=== PATIENT | female | born 2005 | race Two or more races ===

== ENCOUNTER 2023-03-19 19:14 | Emergency (ER) | payer OTHER ==
[~2023-03-19] VITALS: Ht 160 cm; Wt 56.2 kg
[2023-03-19] MEDS ORDERED: PRENATAL + DHA1 EAC1 (20:29)
[2023-03-19] MEDS ORDERED: CEFADROXIL500 MG PO (22:28)
== END 2023-03-19 22:56 | disposition home or self-care (01) ==
LOC: ER 19:14 → EMR PED 19:15
PROVIDERS: Emergency Medicine
DX: O26.891 Other specified pregnancy related conditions, first trimester (principal); Z3A.10 10 weeks gestation of pregnancy; Z20.822 Contact with and (suspected) exposure to COVID-19; O98.511 Other viral diseases complicating pregnancy, first trimester

== ENCOUNTER → 2023-05-04 | Emergency (ER) | payer OTHER ==
[~2023-05-04] VITALS: Ht 160 cm; Wt 59.0 kg
[~2023-05-04] MED LIST: CEFADROXIL500 MG PO; PRENATAL + DHA1 EAC1
[2023-05-04 18:32] LABS: HEMATOCRIT 34.5 % (36.0-45.00); HEMOGLOBIN 11.6 g/dL (12.0-15.00); MEAN CELL VOLUME 83.1 fL (80.00-100.00); MEAN CORPUSCULAR HEMOGLOBIN 28.1 pg (27.00-32.0); MEAN CORPUSCULAR HGB CONC 33.8 g/dl (32.0-36.0); PLATELET COUNT 206 K/uL (150-450); RED BLOOD COUNT 4.15 M/uL (4.00-6.00); RED CELL DISTRIBUTION WIDTH 14.6 % (11.5-14.5)
[2023-05-04 19:25] LABS: CALCIUM 8.6 mg/dL (8.5-10.1); CREATININE SERUM 0.6 mg/dL (0.55-1.02); GFR 128.78; POTASSIUM 3.4 mEq/L (3.5-5.1)
[2023-05-04 19:54] LABS: URINE APPEARANCE Cloudy; URINE BILIRRUBIN Negative (NEGATIVE); URINE BLOOD Negative; URINE COLOR Yellow; URINE GLUCOSE Negative (NEGATIVE); URINE LEUKOCYTE Trace; URINE NITRATE Negative; URINE PROTEIN Trace (NEGATIVE)
[2023-05-04 19:58] LABS: URINE BACTERIA 3419.4 uL (0.0-1933); URINE EPITHELIAL CELLS 116.2 uL (0.0-38.8)
[2023-05-04 20:42] LABS: URINE RBC 1.1 uL (0.0-20.8)
[2023-05-04 20:43] LABS: URINE YEAST NEGATIVE /hpf
== END | disposition home or self-care (01) ==
LOC: ER 17:10
PROVIDERS: Emergency Medicine
DX: N39.0 Urinary tract infection, site not specified (principal); K52.89 Other specified noninfective gastroenteritis and colitis

== ENCOUNTER 2023-06-03 12:35 | Outpatient (CLI) | payer OTHER | END 2023-06-03 14:19 | disposition home or self-care (01) | LOC: NST 12:35 | PROVIDERS: ATTEND Obstetrics & Gynecology | DX: Z34.82 Encounter for supervision of other normal pregnancy, second trimester (principal) ==

== ENCOUNTER 2023-06-19 09:34 | Outpatient (CLI) | payer OTHER ==
[2023-06-19 11:47] LABS: HEMATOCRIT 32.1 % (36.0-45.00); HEMOGLOBIN 11.1 g/dL (12.0-15.00); MEAN CELL VOLUME 83.8 fL (80.00-100.00); MEAN CORPUSCULAR HEMOGLOBIN 28.9 pg (27.00-32.0); MEAN CORPUSCULAR HGB CONC 34.5 g/dl (32.0-36.0); PLATELET COUNT 197 K/uL (150-450); RED BLOOD COUNT 3.83 M/uL (4.00-6.00); RED CELL DISTRIBUTION WIDTH 13.5 % (11.5-14.5)
[2023-06-19 11:49] LABS: INR 0.97; PARTIAL THROMBOPLASTIN TIME 27.6 SECONDS (22.0-34.0); PROTHROMBIN TIME 10.2 SECONDS (9.0-11.5)
== END 2023-06-19 17:39 | disposition home or self-care (01) ==
LOC: OBS/DEL 09:34
PROVIDERS: ATTEND Obstetrics & Gynecology Gynecology
DX: O26.892 Other specified pregnancy related conditions, second trimester (principal); R10.31 Right lower quadrant pain; Z3A.24 24 weeks gestation of pregnancy

== ENCOUNTER 2023-08-10 16:19 | Emergency (ER) | payer OTHER ==
[~2023-08-10] VITALS: Ht 160 cm; Wt 64.9 kg
[2023-08-10 17:55] LABS: HEMATOCRIT 27.9 % (36.0-45.00); HEMOGLOBIN 9.5 g/dL (12.0-15.00); MEAN CELL VOLUME 80.7 fL (80.00-100.00); MEAN CORPUSCULAR HEMOGLOBIN 27.4 pg (27.00-32.0); PLATELET COUNT 208 K/uL (150-450); RED BLOOD COUNT 3.46 M/uL (4.00-6.00); RED CELL DISTRIBUTION WIDTH 13.1 % (11.5-14.5)
[2023-08-10 18:53] LABS: PH,URINE 6.5 (5.0-8.0); URINE APPEARANCE Cloudy; URINE BILIRRUBIN Negative (NEGATIVE); URINE BLOOD Negative; URINE COLOR Yellow; URINE LEUKOCYTE Large; URINE NITRATE Negative; URINE PROTEIN Trace (NEGATIVE)
[2023-08-10 18:57] LABS: URINE BACTERIA 1516.8 uL (0.0-1933); URINE RBC 4.5 uL (0.0-20.8); URINE WBC 168.8 uL (0.0-23.2)
[2023-08-10 19:19] LABS: URINE GLUCOSE 100 MG/DL (NEGATIVE)
[2023-08-10] MEDS ORDERED: ZOFRAN8 MG PO (19:47)
[2023-08-10] MEDS ORDERED: PEPCID AC20 MG PO (19:47)
== END 2023-08-10 20:04 | disposition home or self-care (01) ==
LOC: ER 16:21
PROVIDERS: General Practice
DX: K52.89 Other specified noninfective gastroenteritis and colitis (principal); R11.10 Vomiting, unspecified; R10.9 Unspecified abdominal pain; N39.0 Urinary tract infection, site not specified; Z20.822 Contact with and (suspected) exposure to COVID-19

== ENCOUNTER → 2023-09-20 | Outpatient (CLI) | payer OTHER ==
[~2023-09-20] MED LIST changes: +PEPCID AC20 MG PO; +ZOFRAN8 MG PO
== END | disposition home or self-care (01) ==
LOC: NST 12:09
PROVIDERS: ATTEND Obstetrics & Gynecology
DX: Z34.83 Encounter for supervision of other normal pregnancy, third trimester (principal); Z3A.38 38 weeks gestation of pregnancy

== ENCOUNTER 2023-09-23 13:15 | Inpatient (IN) | payer OTHER ==
[~2023-09-23] VITALS: Ht 162.6 cm; Wt 68.5 kg
[2023-09-27] MEDS ORDERED: AMPICILLIN SODIUM 2,000 MG VIAL ONE (01:16)
[2023-09-27] MEDS ORDERED: RINGERS SOLUTION,LACTATED 1,000 ML IV SCH (01:30)
[2023-09-27] MEDS ORDERED: AMPICILLIN SODIUM 2,000 MG VIAL IV ONE (01:30)
[2023-09-27 01:53] LABS: HEMATOCRIT 28.9 % (36.0-45.00); HEMOGLOBIN 9.7 g/dL (12.0-15.00); MEAN CELL VOLUME 73.2 fL (80.00-100.00); MEAN CORPUSCULAR HEMOGLOBIN 24.5 pg (27.00-32.0); MEAN CORPUSCULAR HGB CONC 33.4 g/dl (32.0-36.0); PLATELET COUNT 245 K/uL (150-450); RED BLOOD COUNT 3.95 M/uL (4.00-6.00); RED CELL DISTRIBUTION WIDTH 15.9 % (11.5-14.5)
[2023-09-27 02:04] LABS: INR 0.95; PARTIAL THROMBOPLASTIN TIME 27.9 SECONDS (22.0-34.0)
[2023-09-27 02:07] LABS: ALBUMIN 3.1 gm/dL (3.4-5.0); BILIRUBIN TOTAL 0.38 mg/dL (0.3-1.2); CALCIUM 9.1 mg/dL (8.5-10.1); CREATININE SERUM 0.59 mg/dL (0.55-1.02); GFR 129.95; GLOBULINA 3.6 G/DL (2.4-3.5); POTASSIUM 3.84 mEq/L (3.5-5.1); TOTAL PROTEIN 6.7 gm/dL (6.4-8.2)
[2023-09-27] MEDS ORDERED: AMPICILLIN SODIUM 1,000 MG VIAL IV SCH (05:00)
[2023-09-27] MEDS ORDERED: MORPHINE SULFATE 4 MG/ML VIAL IV STA ×2 (06:42→08:53)
[2023-09-27] MEDS ORDERED: LIDOCAINE HCL 1% 200MG/20ML VIAL IJ ONE (07:01)
[2023-09-27] MEDS ORDERED: CHLORHEXIDINE GLUCONATE 120 ML BOTTLE TOP ONE (07:01)
[2023-09-27] MEDS ORDERED: OXYTOCIN 20 UNITS/1000ML RL PIGGYBAG IV ONE (07:02)
[2023-09-27] MEDS ORDERED: ERYTHROMYCIN BASE 1 GM TUBE OP ONE ×2 (07:02→14:45)
[2023-09-27] MEDS ORDERED: CEFAZOLIN SODIUM 1,000 MG VIAL IV STA (12:49)
[2023-09-27] MEDS ORDERED: CITRIC ACID/SODIUM CITRATE 30 ML BLIST.PACK PO ONE ×2 (13:00→13:21)
[2023-09-27] MEDS ORDERED: OXYTOCIN 10 UNITS/ML VIAL ONE ×2 (13:14→19:30)
[2023-09-27] MEDS ORDERED: ERYTHROMYCIN BASE 3.5 GM OINT...G. OP ONE (13:15)
[2023-09-27] MEDS ORDERED: CEFAZOLIN SODIUM 1,000 MG VIAL ONE (13:21)
[2023-09-27] MEDS ORDERED: MEPERIDINE HCL/PF 50 MG/ML VIAL IM PRN (14:45)
[2023-09-27] MEDS ORDERED: OXYTOCIN 1,000 ML IV SCH (14:45)
[2023-09-27] MEDS ORDERED: IBUprofen 400 MG TABLET PO PRN (14:45)
[2023-09-27] MEDS ORDERED: OXYTOCIN 10 UNITS/ML VIAL IV ONE (15:00)
[2023-09-27] MEDS ORDERED: KETOROLAC TROMETHAMINE 30 MG VIAL ONE (15:44)
[2023-09-27] MEDS ORDERED: AMPICILLIN SODIUM 1,000 MG VIAL ONE (19:05)
[2023-09-28] MEDS ORDERED: OxyCODONE HCL/APAP UD (PERCOCET) PO PRN ×2 (01:30→14:30)
[2023-09-28] MEDS ORDERED: IBUprofen 800 MG TABLET PO PRN (10:45)
[2023-09-28 12:31] LABS: HEMATOCRIT 24.5 % (36.0-45.00); MEAN CELL VOLUME 74.3 fL (80.00-100.00); MEAN CORPUSCULAR HGB CONC 33.4 g/dl (32.0-36.0); PLATELET COUNT 206 K/uL (150-450); RED BLOOD COUNT 3.29 M/uL (4.00-6.00)
[2023-09-28 12:32] LABS: HEMOGLOBIN 8.2 g/dL (12.0-15.00); MEAN CORPUSCULAR HEMOGLOBIN 24.9 pg (27.00-32.0)
[2023-09-29] MEDS ORDERED: IRON FUM,PS/FOLIC ACID/VITC/B3 1 CAP CAPSULE PO SCH (11:41)
== END 2023-09-30 11:32 | disposition home or self-care (01) | DRG 788 ==
LOC: LDR 09-27 01:01 → O/R 09-27 01:01 → OB/GYN 09-27 17:27 → LDR 09-29 13:15 → OB/GYN 09-30 11:32
PROVIDERS: Obstetrics & Gynecology; ADMIT Obstetrics & Gynecology; ATTEND Obstetrics & Gynecology
PROC: 4A1HXCZ Monitoring of Products of Conception, Cardiac Rate, External Approach (ICD-10-PCS; 2023-09-27)
PROC: 10D00Z1 Extraction of Products of Conception, Low, Open Approach (ICD-10-PCS; principal; 2023-09-27 13:15)
DX: O33.8 Maternal care for disproportion of other origin (principal); Z3A.39 39 weeks gestation of pregnancy; Z37.0 Single live birth; Z20.822 Contact with and (suspected) exposure to COVID-19

== ENCOUNTER 2024-05-06 22:15 | Emergency (ER) | payer OTHER ==
[~2024-05-06] VITALS: Ht 162.6 cm; Wt 52.2 kg
[~2024-05-06 22:15] MED LIST changes: +ZITHROMAX500 MG PO
[2024-05-06 22:28] VITALS: BP 108/59; O2SAT 100
[2024-05-06] MEDS ORDERED: 0.9 % SODIUM CHLORIDE 1,000 ML IV ONE (23:30)
[2024-05-06] MEDS ORDERED: ONDANSETRON HCL 2 MG/ML VIAL IV ONE (23:30)
[2024-05-06] MEDS ORDERED: FAMOtidine 10 MG/ML (4ML VIAL) IV ONE (23:30)
[2024-05-07 00:01] LABS: HEMATOCRIT 39.8 % (36.0-45.00); HEMOGLOBIN 13.3 g/dL (12.0-15.00); MEAN CORPUSCULAR HEMOGLOBIN 26.8 pg (27.00-32.0); MEAN CORPUSCULAR HGB CONC 33.5 g/dl (32.0-36.0); PLATELET COUNT 240 K/uL (150-450); RED BLOOD COUNT 4.97 M/uL (4.00-6.00)
[2024-05-07 00:29] LABS: ALBUMIN 4.4 gm/dL (3.4-5.0); ALKALINE PHOSPHATASE 66 U/L (50-136); ALT/SGPT 18 U/L (12-78); ANION GAP 10 (10.0-20.0); AST/SGOT 17 U/L (15-37); BILIRUBIN TOTAL 0.56 mg/dL (0.3-1.2); BLOOD UREA NITROGEN 18 mg/dL (7-18); BUN CREA RATIO 22 (7.0-25.0); CALCIUM 9.2 mg/dL (8.5-10.1); CARBON DIOXIDE 27 mEq/L (21-32); CHLORIDE 107 mmol/L (98-107); CREATININE SERUM 0.81 mg/dL (0.55-1.02); GFR 90.14; GLOBULINA 3.8 G/DL (2.4-3.5); GLUCOSE FASTING 114 mg/dL (65-100); OSMOLALITY SERUM 282 MOSM/KG (275-295); POTASSIUM 3.78 mEq/L (3.5-5.1); SODIUM 140 mmol/L (136-145); TOTAL PROTEIN 8.2 gm/dL (6.4-8.2)
[2024-05-07 00:30] LABS: HCG QUANTITATIVE < 1 mUI/mL (1-3)
[2024-05-07] MEDS ORDERED: SUCRALFATE 1 G TABLET PO STA (02:54)
[2024-05-07] MEDS ORDERED: CARAFATE1 GM PO (05:19)
[2024-05-07] MEDS ORDERED: ONDANSETRON ODT8 MG PO (05:19)
[2024-05-07] MEDS ORDERED: PEPCID40 MG PO (05:19)
[2024-05-07] MEDS ORDERED: PROTONIX40 MG PO (05:19)
== END 2024-05-07 05:24 ==
LOC: ER 22:16
PROVIDERS: General Practice
DX: R11.2 Nausea with vomiting, unspecified (principal); Z91.040 Latex allergy status